=== PATIENT | male | born 1995 | race Caucasian/White ===

== ENCOUNTER → 2023-02-25 | Outpatient (REF) | payer OTHER | LOC: M LABSMT 10:42 | PROVIDERS: ATTEND Urology | DX: Z30.2 Encounter for sterilization (principal) | CPT/HCPCS: 55250; 88302; J0665 ==

== ENCOUNTER → 2023-05-01 | Outpatient (REF) | payer OTHER ==
[2023-05-01 12:04] LABS: SEMEN APPEARANCE OPAQUE (OPAQUE); SEMEN VISCOSITY LIQUID (LIQUID); WBC CONCENTRATION <=1 M/ml (<=1 M/ml)
== END ==
LOC: M SMT 11:16
PROVIDERS: ATTEND Urology
DX: Z30.2 Encounter for sterilization (principal)

== ENCOUNTER → 2023-06-23 | Outpatient (REF) | payer OTHER ==
[2023-06-23 14:15] LABS: SEMEN APPEARANCE OPAQUE (OPAQUE); SEMEN VISCOSITY LIQUID (LIQUID); SEMEN VOLUME 2.1 ml (2.0-5.0); SEMEN pH 8.5 (7.0-8.0); WBC CONCENTRATION >1 M/ml (<=1 M/ml)
== END ==
LOC: M SMT 14:12
PROVIDERS: ATTEND Urology
DX: Z98.52 Vasectomy status (principal)